=== PATIENT | male | born 1975 | race Caucasian/White ===

== ENCOUNTER → 2020-02-13 | Outpatient (CLI) | payer BC ==
[~2020-02-13] MED LIST: KEFLEX500 MG PO
[2020-02-15 07:09] LABS: ZINC, PLASMA 85 ug/dL (56-134)
== END | disposition home or self-care (01) ==
LOC: LAB 08:02
PROVIDERS: ATTEND Psychiatry & Neurology Neurology
DX: R20.2 Paresthesia of skin (principal); G95.9 Disease of spinal cord, unspecified

== ENCOUNTER → 2022-06-17 | Outpatient (CLI) | payer BC ==
[2022-06-17 11:56] LABS: BUN 11 mg/dl (9-23); CHLORIDE 102 mmol/L (98-107); POTASSIUM 3.8 mmol/L (3.4-5.1)
== END | disposition home or self-care (01) ==
LOC: LAB 10:52
PROVIDERS: Family Medicine; ATTEND Family Medicine
DX: E83.39 Other disorders of phosphorus metabolism (principal); E83.51 Hypocalcemia